=== PATIENT | male | born 1985 | race Caucasian/White ===

== ENCOUNTER 2019-05-27 02:06 | Emergency (ER) | payer OTHER ==
[2019-05-27] MEDS ORDERED: Amoxicillin/Potassium Clav 875 MG TAB ONE (02:32)
[2019-05-27] MEDS ORDERED: Ondansetron ODT 4 MG TAB ONE (02:33)
[2019-05-27] MEDS ORDERED: Ketorolac Tromethamine 30 MG/ML VIAL ONE (02:33)
[2019-05-27] MEDS ORDERED: Adacel (T-DAP) 0.5 ML SYRINGE ONE (02:33)
[2019-05-27] MEDS ORDERED: Sodium Chloride Irrig Solution 250 ML BOT ONE (06:39)
[2019-05-27] MEDS ORDERED: Sterile Water Irrigation 1,000 ML BOT ONE (06:39)
== END 2019-05-27 03:25 | disposition home or self-care (01) ==
LOC: MADERS 02:06
DX: T23.251A Burn of second degree of right palm, initial encounter (principal); T23.231A Burn of second degree of multiple right fingers (nail), not including thumb, initial encounter; T23.151A Burn of first degree of right palm, initial encounter; T22.10XA Burn of first degree of shoulder and upper limb, except wrist and hand, unspecified site, initial encounter; T31.0 Burns involving less than 10% of body surface; T22.112A Burn of first degree of left forearm, initial encounter; E11.9 Type 2 diabetes mellitus without complications; E03.9 Hypothyroidism, unspecified; X08.8XXA Exposure to other specified smoke, fire and flames, initial encounter
CPT/HCPCS: 16020; 90471; 90715; 96372; A4217; J1885; Q0162